=== PATIENT | female | born 1940 | race Caucasian/White ===

== ENCOUNTER 2016-11-19 02:44 | Inpatient (IN) | payer MEDICARE, OTHER ==
[2016-11-19] MEDS ORDERED: ETOMIDATE INJ/PF 20 MG/10 ML SDV IV ONE (02:50)
--- NOTE | 2016-11-19 02:52 | ER Document Report ---
ED General - General Stated Complaint: DIFFICULTY BREATHING Time Seen by Provider: 11/19/16 02:48 Notes: Patient is a 76-year-old female with a previous history of stroke. She lives at home with a purchasing agent. Paramedics were called today because patient was on well-appearing and having difficulty breathing. When paramedics arrived her oxygen saturation is 40%. Placed on CPAP which initially brought up to 83%. By the time she got here she was in the 90s. We have since switched to BiPAP and now she is 100% on the BiPAP. Patient is very weak appearing. She is able to say some words but it is difficult to understand exactly what she is saying. I asked if she has pain she says no. I asked if she knows where she is and she does say the hospital. Is unclear if she has had any recent fevers. Her temp with the paramedics was 97.3 rectal. Blood sugar was 220. Family is apparently in route from [place]. She does have a DNR form with her. Primary care physician is Dr. Darren Gomez. TRAVEL OUTSIDE OF THE [place] IN LAST 30 DAYS: No - Related Data Allergies/Adverse Reactions: No Known Allergies Allergy (Verified 05/21/14 07:10) Past Medical History - Social History Smoking Status: Unknown if Ever Smoked Frequency of alcohol use: unknown Drug Abuse: None Family History: Reviewed & Not Pertinent - Past Medical History Cardiac Medical History: Reports: Hx Hypercholesterolemia Neurological Medical History: Reports: Hx Cerebrovascular Accident GI Medical History: Reports: Hx Gastroesophageal Reflux Disease Past Surgical History: Reports: Hx Hysterectomy - Immunizations Hx Diphtheria, Pertussis, Tetanus Vaccination: Yes Review of Systems - Review of Systems -: Yes ROS unobtainable due to patient's medical condition - Patient is very weak and has difficulty communicating. Physical Exam - Vital signs Vitals: Pulse Ox 100 11/19/16 02:47 - Notes Notes: General Appearance: Very thin. Patient lying in position on the cot. She is awake and alert. Vitals: reviewed, See vital signs table. Head: no swelling or tenderness to the head Eyes: PERRL, EOMI, Conjuctiva clear Mouth: No decreasd moisture Neck: Supple, no neck tenderness, No thyromegaly Lungs: No wheezing, No rales, No rhonci, No accessory muscle use, good air exchange bilaterally. Heart: Normal rate, Regular rythm, No murmur, no rub Abdomen: Normal BS, soft, No rigidity, No abdominal tenderness, No guarding, no rebound, no abdominal masses, no organomegaly Extremities: strength 5/5 in all extremities, good pulses in all extremities, no swelling or tenderness in the extremities, no edema. Skin: warm, dry, appropriate color, no rash Neuro: speech clear, oriented x 2, patient is very weak and has difficulty responding to questions. She does move her arms spontaneously. She keeps her legs curled in the position.. Course - Re-evaluation Re-evalutation: 11/19/16 05:12 Patient's daughter did come. She is at bedside now. I asked her that if she requires a ventilator and future stay alive this is something that the patient would want. The daughter says that the patient does not want any type of artificial life support. 11/19/16 06:06 Patient's chest x-ray does show evidence of right-sided pneumonia which I suspect is probably aspiration. Urinalysis is still not been able to be obtained. I suspect this is related to dehydration. She has not made any urine despite IV fluids. Kidney function surprisingly is normal. She is a DNR. phototypesetting equipment monitor she has these what appear to be runs of tachycardia however when you auscultate her heart during these runs her heart rate on auscultation sounds to only be about 90. When obtain EKG you can see in some weights that she is actually in a sinus rhythm and that the appearance using a monitors artifact. I also reviewed previous EKGs from 2015 which had the exact same appearance. Also talked to the family who says that this is a chronic problem where she has this tremor that causes artifact look that is always concerned healthcare providers according to the family. At this time I did speak with the hospitalist who agrees to admit the patient. Patient will be admitted for treatment of aspiration pneumonia, dehydration, and to make sure that her respiratory status continues to improve. Dictation of this chart was performed using voice recognition software; therefore, there may be some unintended grammatical errors. - Vital Signs Vital signs: Temp Pulse Resp BP Pulse Ox 17 156/113 H 100 11/19/16 05:01 11/19/16 05:01 11/19/16 05:00 - Laboratory Result Diagrams: 11/19/16 02:56 11/19/16 02:56 Laboratory results interpreted by me: 11/19/16 11/19/16 11/19/16 02:56 02:56 02:56 WBC 12.4 H Hgb 10.7 L Hct 32.2 L RDW 16.9 H Seg Neutrophils % 89.6 H Lymphocytes % 7.6 L Monocytes % 2.6 L Absolute Neutrophils 11.1 H VBG pH 7.25 L VBG pCO2 67.9 H* BUN 21 H Glucose 191 H - EKG Interpretation by Me Additional EKG results interpreted by me: 11/19/16 03:20 EKG is reviewed and interpreted by me. EKG shows severe amount of artifact making it extremely difficult to interpret. The best most cleanly is her leads V4 and V5. These leads appear to be sinus rhythm with a rate around 90 bpm. The remainder of the leads are extremely difficult to interpret. Old EKG for comparison is from December 29, 2014. The old EKG also has a large amount of artifact making it not a very good comparison EKG. Discharge - Discharge Clinical Impression: Dehydration, FTT (failure to thrive) in adult Pneumonia Qualifiers: Pneumonia type: due to unspecified organism Laterality: right Lung location: unspecified part of lung Qualified Code(s): J18.9 - Pneumonia, unspecified organism Condition: Stable Disposition: ADMITTED INPATIENT Admitting Provider: Hospitalist Unit Admitted: [facility]
[2016-11-19 03:31] LABS: ABSOLUTE LYMPHOCYTES (AUTO) 0.9 10^3/uL (0.5-4.7); ABSOLUTE MONOCYTES (AUTO) 0.3 10^3/uL (0.1-1.4); ABSOLUTE NEUT (AUTO) 11.1 10^3/uL (1.7-8.2); BASOPHILS % (AUTO) 0.2 % (0-2); HEMATOCRIT 32.2 % (36.0-47.0); HEMOGLOBIN 10.7 g/dL (12.0-15.5); HGB HCT DIFFERENCE -0.1; LYMPHOCYTES % (AUTO) 7.6 % (13-45); MEAN CORPUSCULAR HEMOGLOBIN 27.6 pg (27.0-33.4); MEAN CORPUSCULAR VOLUME 83 fl (80-97); MONOCYTES % (AUTO) 2.6 % (3-13); RED BLOOD COUNT 3.86 10^6/uL (3.72-5.28); RED CELL DISTRIBUTION WIDTH 16.9 % (11.5-14.0); SEGMENTED NEUTROPHILS % (AUTO) 89.6 % (42-78); WHITE BLOOD COUNT 12.4 10^3/uL (4.0-10.5)
[2016-11-19 03:34] LABS: VENOUS BLOOD BASE EXCESS -0.1 mmol/L; VENOUS BLOOD HCO3 29.3 mmol/L (20-32); VENOUS BLOOD PH 7.25 (7.30-7.42)
[2016-11-19 03:37] LABS: VENOUS BLOOD PCO2 67.9 mmHg (35-63)
[2016-11-19 03:46] LABS: ALANINE AMINOTRANSFERASE 20 U/L (9-52); ALBUMIN 4.2 g/dL (3.5-5.0); ALKALINE PHOSPHATASE 93 U/L (38-126); ANION GAP 13 (5-19); ASPARTATE AMINO TRANSFERASE 21 U/L (14-36); BILIRUBIN,DIRECT 0.2 mg/dL (0.0-0.4); BILIRUBIN,TOTAL 0.2 mg/dL (0.2-1.3); BLOOD UREA NITROGEN 21 mg/dL (7-20); CALCIUM 9.9 mg/dL (8.4-10.2); CARBON DIOXIDE 29 mmol/L (22-30); CHLORIDE 98 mmol/L (98-107); CREATININE RESULT 0.62 mg/dL (0.52-1.25); GLUCOSE 191 mg/dL (75-110); POTASSIUM 4.9 mmol/L (3.6-5.0); SODIUM 139.5 mmol/L (137-145); TOTAL PROTEIN 7.2 g/dL (6.3-8.2)
--- NOTE | 2016-11-19 03:57 | EKG REPORT ---
SEVERITY:- ABNORMAL ECG - ATRIAL FLUTTER, A-RATE 250 VENTRICULAR PREMATURE COMPLEX RBBB AND LAFB PROBABLE LEFT VENTRICULAR HYPERTROPHY : Confirmed by: Haylee Krause MD 19-Nov-2016 03:56:41
[2016-11-19] MEDS ORDERED: NORMAL SALINE 1000 ML 1,000 ML IV ONE (04:00)
--- NOTE | 2016-11-19 04:47 | RADIOLOGY REPORT (SQ) ---
EXAM DESCRIPTION: CHEST SINGLE VIEW COMPLETED DATE/TIME: 11/19/2016 4:16 am REASON FOR STUDY: dyspnea COMPARISON: 10/09/2014. CT, 10/09/2014. EXAM PARAMETERS: NUMBER OF VIEWS: One view. TECHNIQUE: Single frontal radiographic view of the chest acquired. RADIATION DOSE: NA LIMITATIONS: None. FINDINGS: LUNGS AND PLEURA: New small nodular patchiness of the right lower lobe. MEDIASTINUM AND HILAR STRUCTURES: No masses. Contour normal. HEART AND VASCULAR STRUCTURES: Heart normal in size. Normal vasculature. BONES: Right total shoulder arthroplasty. HARDWARE: None in the chest. OTHER: No other significant finding. IMPRESSION: Small right lower lobar pneumonia. 7-12 week surveillance radiographs recommended. TECHNICAL DOCUMENTATION: JOB ID: [id number]
[2016-11-19] MEDS ORDERED: LIDOCAINE 2% URO-JET 5 ML KIT MM ONE (04:56)
[2016-11-19] MEDS ORDERED: LEVOFLOXACIN 750 MG/D5W RTU 750 MG/150 ML RTUPB IV ONE (05:16)
[2016-11-19] MEDS ORDERED: CLINDAMYCIN 300 MG/D5W RTU 300 MG/50 ML RTUPB IV ONE (05:16)
--- NOTE | 2016-11-19 05:49 | RADIOLOGY REPORT (SQ) ---
EXAM DESCRIPTION: CT HEAD WITHOUT COMPLETED DATE/TIME: 11/19/2016 5:34 am REASON FOR STUDY: altered mental status COMPARISON: 05/21/2014. TECHNIQUE: Axial images acquired through the brain without intravenous contrast. Images reviewed wi th bone, brain and subdural windows. Images stored on PACS. All CT scanners at this facility use dose modulation, iterative reconstruction, and/or weight based d osing when appropriate to reduce radiation dose to as low as reasonably achievable (ALARA). [facility]: Dose Right [facility]: CareDose [facility]: Dose Right [facility]: Teradose 4D [facility]: [employer] RADIATION DOSE: Up-to-date CT equipment and radiation dose reduction techniques were employed. CTDIv ol: 55.2 mGy. DLP: 974 mGy-cm. mGy. LIMITATIONS: None. FINDINGS: VENTRICLES: Normal size and contour. CEREBRUM: No masses. No hemorrhage. No midline shift. No evidence for acute infarction. Moderate c erebral volume loss and moderate white matter microangiopathy. CEREBELLUM: No masses. No hemorrhage. No alteration of density. No evidence for acute infarction. EXTRAAXIAL SPACES: No fluid collections. No masses. ORBITS AND GLOBE: No intra- or extraconal masses. Normal contour of globe without masses. CALVARIUM: No fracture. PARANASAL SINUSES: No fluid or mucosal thickening. SOFT TISSUES: No mass or hematoma. OTHER: No other significant finding. IMPRESSION: No acute findings. EVIDENCE OF ACUTE STROKE: NO. COMMENT: Quality ID # [id number]: Final reports with documentation of one or more dose reduction techniques (e.g., Automated exposure control, adjustment of the mA and/or kV according to patient size, use of iterative reconstruction technique) TECHNICAL DOCUMENTATION: JOB ID: [id number] [employer]- All Rights Reserved
[2016-11-19 06:03] LABS: CREATINE KINASE MB 1.4 ng/mL (<4.55)
[2016-11-19] MEDS ORDERED: ACETAMINOPHEN 325 MG TABLET PO PRN (06:08)
[2016-11-19 06:10] LABS: TROPONIN I 0.063 ng/mL
[2016-11-19] MEDS ORDERED: NORMAL SALINE 1000 ML 1,000 ML IV SCH (06:15)
--- NOTE | 2016-11-19 06:57 | PDOC H&P ---
History of Present Illness Admission Date/PCP: 11/19/16 06:08 Patient complains of: Shortness of breath and cough History of Present Illness: SALINA MAYES is a 76 year old female with a past medical history of chronic constipation, dementia, tremor, multiple strokes who is bedbound in severe flexion contraction 4. Who had been in her usual state of health until approximately 2 hours prior to presentation with cough and tachypnea EMS arrived with oxygen saturations in the 40s she was placed on CPAP with 100% FiO2 resulting in pulse oximetry of 83. In the emergency room she is placed on BiPAP satting 100%. Patient is extremely debilitated with temporal wasting and cachexia. Daughter and caregiver are at bedside to verify swallowing challenges with pocketing, coughing and refusal to cooperate with feeding intermittently but increasing frequency. Workup in the emergency room suggests aspiration pneumonia with a right lower lobe infiltrate. She started on empiric antibiotics and for the hospitalist for admission she is DNR DNI. Daughter does not wish NG tube use. Past Medical History Cardiac Medical History: Reports: Hyperlipidema Neurological Medical History: Reports: Ischemic CVA GI Medical History: Reports: Gastroesophageal Reflux Disease Past Surgical History Past Surgical History: Reports: Hysterectomy Social History Information Source: Relative Lives with: Family Smoking Status: Unknown if Ever Smoked Frequency of Alcohol Use: Heavy Hx Recreational Drug Use: No Hx Prescription Drug Abuse: No - Advance Directive Resuscitation Status: Do Not Resuscitate Family History Family History: Hypertension Parental Family History Reviewed: Yes Children Family History Reviewed: Yes Sibling(s) Family History Reviewed.: Yes Medication/Allergy Home Medications: Lansoprazole [Prevacid 30 mg Odt Tablet] 30 mg PO [id number] 05/21/14 Tolterodine Tartrate [Detrol LA] 4 mg PO DAILY 05/21/14 Zolpidem Tartrate [Ambien Cr] 12.5 mg PO QHS PRN #30 tab.mphase 05/27/14 Citalopram Hydrobromide [Celexa] 1 tab PO DAILY 10/09/14 Carbidopa/Levodopa [Sinemet 25-100 mg Tablet] 0.5 tab PO TID 12/29/14 Ciprofloxacin HCl [Cipro 500 mg Tablet] 500 mg PO BID #20 tablet 12/29/14 Hydrocodone/Acetaminophen [Wirtz 10-325 mg Tablet] 0.5 - 1 tab PO QIDP PRN 12/29 Lisinopril [Prinivil 10 mg Tablet] 10 mg PO QPM 12/29/14 Metoprolol Succinate [Toprol Xl 25 mg Tab.sr] 25 mg PO DAILY 12/29/14 Mirtazapine [Remeron 15 mg Tablet] 0.5 tab PO QHS 12/29/14 Promethazine HCl 25 mg PO TIDP PRN 12/29/14 Allergies/Adverse Reactions: No Known Allergies Allergy (Verified 05/21/14 07:10) Review of Systems ROS unobtainable: Due to mental status Physical Exam Vital Signs: Temp Pulse Resp BP Pulse Ox 17 156/113 H 100 11/19/16 05:01 11/19/16 05:01 11/19/16 05:00 General appearance: PRESENT: hard of hearing, mild distress, thin, other - Severe cachexia and temporal wasting flexion contracture 4 Head exam: PRESENT: atraumatic, normocephalic Eye exam: PRESENT: conjunctiva pink, EOMI, PERRLA. ABSENT: scleral icterus Ear exam: PRESENT: normal external ear exam Mouth exam: PRESENT: dry mucosa Neck exam: ABSENT: carotid bruit, JVD, lymphadenopathy, thyromegaly Respiratory exam: PRESENT: accessory muscle use, symmetrical, tachypnea Cardiovascular exam: PRESENT: RRR. ABSENT: diastolic murmur, rubs, systolic murmur Pulses: PRESENT: normal dorsalis pedis pul Vascular exam: PRESENT: normal capillary refill GI/Abdominal exam: PRESENT: diminished bowel sounds, firm Rectal exam: PRESENT: deferred Extremities exam: PRESENT: tenderness, other - Multiple stage II decubiti. ABSENT: calf tenderness, clubbing, full ROM, pedal edema, +1 edema Musculoskeletal exam: ABSENT: full ROM Neurological exam: PRESENT: altered Psychiatric exam: PRESENT: appropriate affect, normal mood. ABSENT: homicidal ideation, suicidal ideation Skin exam: PRESENT: dry, intact, skin tears, warm, other - Multiple stage II decubiti, sacral and lower extremity bilaterally. ABSENT: cyanosis, rash Results Impressions: Chest X-Ray 11/19/16 03:10 IMPRESSION: Small right lower lobar pneumonia. 7-12 week surveillance radiographs recommended. Head CT 11/19/16 04:21 IMPRESSION: No acute findings. EVIDENCE OF ACUTE STROKE: NO. Assessment & Plan - Diagnosis (1) Aspiration pneumonia Is this a current diagnosis for this admission?: Yes Plan: Conservative measures, no NG tube empiric antibiotics and symptomatic management consider speech therapy and swallow study (2) Dementia Is this a current diagnosis for this admission?: Yes Plan: Will undoubtedly severely limit prognosis, supportive care (3) Malnutrition Is this a current diagnosis for this admission?: Yes Plan: Limited by lack of GI access, not a TPA candidate. (4) Decubitus ulcer of left heel, stage 2 Is this a current diagnosis for this admission?: Yes Plan: Specialized mattress and repositioning as tolerated. - Time Time Spent: 50 to 70 Minutes - Inpatient Certification Medical Necessity: Need Close Monitoring Due to Risk of Patient Decompensation
[2016-11-19] MEDS ORDERED: NORMAL SALINE 1000 ML 1,000 ML IV PRN (07:42)
[2016-11-19] MEDS ORDERED: GLUCAGON,HUMAN RECOMB 1 MG INJ SUBCUT PRN (07:42)
[2016-11-19] MEDS ORDERED: DEXTROSE 40% GEL 15 GM TUBE PO PRN ×2 (07:42)
[2016-11-19] MEDS ORDERED: GUAIFENESIN SYRP 200 MG/10 ML UDC PO PRN (07:42)
[2016-11-19] MEDS ORDERED: DEXTROSE 50%-WATER 25 GM/50 ML DISP.SYRIN IV PRN ×2 (07:42)
[2016-11-19] MEDS ORDERED: IPRATROPIUM/ALBUTEROL 0.5-2.5 MG/3 ML AMPUL NEB SCH (08:00)
[2016-11-19] MEDS ORDERED: ALBUTEROL SULFATE 0.083% NEB 2.5 MG/3 ML AMPUL NEB SCH (08:00)
--- NOTE | 2016-11-19 09:51 | EKG REPORT ---
SEVERITY:- ABNORMAL ECG - PROBABLE SINUS RHYTHM REC REPEAT EKG ABERRANT COMPLEX, POSSIBLY SUPRAVENTRICULAR BORDERLINE LEFT AXIS DEVIATION PROLONGED QT INTERVAL : Confirmed by: Manohar Seals 19-Nov-2016 09:50:49
[2016-11-19] MEDS ORDERED: CARBIDOPA/LEVODOPA 25-100 MG TABLET PO SCH (10:00)
[2016-11-19] MEDS ORDERED: CEFTRIAXONE 1 GM/D5W RTU 1 GM/50 ML RTUPB IV SCH (10:00)
[2016-11-19] MEDS ORDERED: FAMOTIDINE INJ/PF 20 MG/2 ML SDV IV SCH (10:00)
[2016-11-19] MEDS ORDERED: MORPHINE SULFATE 10 MG/ML INJ IV PRN (11:14)
[2016-11-19] MEDS: LORAZEPAM INJ 2 MG/1 ML VIAL IV PRN ×2 (13:13→18:45)
[2016-11-19] MEDS ORDERED: HEPARIN SOD (PORCINE) 5,000 UNIT/ML 1 ML SYRINGE SUBCUT SCH (14:00)
--- NOTE | 2016-11-19 14:41 | PDOC PROGRESS REPORT ---
Subjective Progress Note for:: 11/19/16 Subjective:: Unable to obtain review of systems from patient secondary to dementia. Patient on BiPAP requiring 60% oxygen. Discussed patient's care with her daughter who is in agreement for comfort measures. Physical Exam Vital Signs: Temp Pulse Resp BP Pulse Ox 94 17 141/91 H 100 11/19/16 09:25 11/19/16 07:30 11/19/16 07:01 11/19/16 07:15 Intake & Output 11/18/16 11/19/16 11/20/16 06:59 06:59 06:59 Weight 37 kg Exam: General: Cachectic, acute and chronically ill-appearing, older than stated age appearing, moderate respiratory distress on BiPAP HEENT: AT/NC, PERRL, oropharynx is dry, pink, no scleral icterus, no conjunctival injection Neck: No JVD, trachea midline Chest: Bilateral rhonchi right greater than left CV: Tachycardic, regular rate and rhythm, normal S1 and S2, no rub or gallop; +2 /6sm lusb Abdomen: Scaphoid, soft, nontender to palpation, nondistended, active bowel sounds; no rebound, rigidity, or guarding Extremities: No cyanosis, clubbing or edema Neuro: minimally responsive, masklike fascies, flexion contractures of all 4 extremities Psych: unable to assess Skin: multiple stage 2 decubitii over all pressure points in various stages of healing Results Impressions: Chest X-Ray 11/19/16 03:10 IMPRESSION: Small right lower lobar pneumonia. 7-12 week surveillance radiographs recommended. Head CT 11/19/16 04:21 IMPRESSION: No acute findings. EVIDENCE OF ACUTE STROKE: NO. Assessment & Plan - Diagnosis (1) FTT (failure to thrive) in adult Is this a current diagnosis for this admission?: Yes (2) Aspiration pneumonia Qualifiers: Aspiration pneumonia type: due to vomit Laterality: right Lung location: middle lobe of lung Qualified Code(s): J69.0 - Pneumonitis due to inhalation of food and vomit Is this a current diagnosis for this admission?: Yes (3) Dehydration Is this a current diagnosis for this admission?: Yes (4) Dementia Qualifiers: Dementia type: vascular dementia Dementia behavioral disturbance: without behavioral disturbance Qualified Code(s): F01.50 - Vascular dementia without behavioral disturbance Is this a current diagnosis for this admission?: Yes (5) Malnutrition Qualifiers: Malnutrition type: protein-calorie malnutrition Protein-calorie malnutrition severity: severe Qualified Code(s): E43 - Unspecified severe protein-calorie malnutrition Is this a current diagnosis for this admission?: Yes (6) Pneumonia Qualifiers: Pneumonia type: aspiration pneumonia Laterality: right Lung location: middle lobe of lung Is this a current diagnosis for this admission?: Yes (7) Acute encephalopathy Is this a current diagnosis for this admission?: Yes (8) Decubitus ulcer of left heel, stage 2 Is this a current diagnosis for this admission?: Yes (9) SVT (supraventricular tachycardia) Is this a current diagnosis for this admission?: Yes (10) Sacral decubitus ulcer, stage II Is this a current diagnosis for this admission?: Yes (11) nonambulatory Is this a current diagnosis for this admission?: Yes - Time Time Spent with patient: 35 or more minutes Medications reviewed and adjusted accordingly: Yes Anticipated discharge: Hospice - Plan Summary Plan Summary: Upon discussion with her daughter who is present at this time, patient has not been eating or drinking well for the last several weeks, and apparently has reported to her family that she would not be here next year. She reported that she did not want to do this anymore. Patient is contracted and bedbound at baseline and dependent on others for all IADLs. She reports that her mother has lost approximately 10 pounds since March of this year. Patient was last hospitalized here in 2014 and it appears that patient is down a minimum of 4 kg at this time. At baseline, patient is oriented to self alone. In light of patient's severe sepsis, acute respiratory failure, aspiration in the setting of severe constipation, and severe protein calorie malnourishment, patient has an exceptionally poor prognosis and her daughter has elected to make her comfort measures at this time. She will discuss with her caregivers whether she will be able to perform hospice at home or go to a care center. But at this time she does wish to make her comfortable. We will place morphine, Ativan , and atropine for this purpose.
[2016-11-19] MEDS: ATROPINE SULFATE 1% OPH SOLN 5 ML BOTTLE SL SCH ×2 (15:26→22:15)
[2016-11-19] MEDS ORDERED: FENTANYL 12 MCG/HR PATCH.TD72 TD ONE (15:30)
[2016-11-20] MEDS: ATROPINE SULFATE 1% OPH SOLN 5 ML BOTTLE SL SCH ×3 (03:31→17:55)
[2016-11-20] MEDS ORDERED: MORPHINE SULFATE 10 MG/ML INJ IV ONE ×2 (08:54→09:20)
[2016-11-20] MEDS: MORPHINE SULFATE 10 MG/ML INJ IV PRN ×3 (11:41→20:17)
--- NOTE | 2016-11-20 14:10 | PDOC PROGRESS REPORT ---
Subjective Progress Note for:: 11/20/16 Subjective:: Unable to obtain review of systems from patient secondary to dementia and encephalopathy. Patient is grimacing and shallowly breathing. Discussed patient's care with her daughter who is in agreement for comfort measures. Physical Exam Vital Signs: Temp Pulse Resp BP Pulse Ox 94 15 141/91 H 100 11/19/16 09:25 11/19/16 08:50 11/19/16 07:01 11/19/16 07:15 Intake & Output 11/19/16 11/20/16 11/21/16 06:59 06:59 06:59 Intake Total 355 Output Total 0 Balance 355 Weight 37 kg Exam: General: grimacing, cachectic, acute and chronically ill-appearing, older than stated age appearing, shallow breathing HEENT: AT/NC, PERRL, oropharynx is dry, pink, no scleral icterus, no conjunctival injection Neck: No JVD, trachea midline Chest: Shallow breathing, bilateral rhonchi right greater than left CV: Tachycardic, regular rate and rhythm, normal S1 and S2, no rub or gallop; +2 /6sm lusb Abdomen: Scaphoid, soft, nontender to palpation, nondistended, active bowel sounds; no rebound, rigidity, or guarding Extremities: No cyanosis, clubbing or edema Neuro: minimally responsive, masklike fascies, flexion contractures of all 4 extremities Psych: unable to assess Skin: multiple stage 2 decubitii over all pressure points in various stages of healing Results Impressions: Chest X-Ray 11/19/16 03:10 IMPRESSION: Small right lower lobar pneumonia. 7-12 week surveillance radiographs recommended. Head CT 11/19/16 04:21 IMPRESSION: No acute findings. EVIDENCE OF ACUTE STROKE: NO. Assessment & Plan - Diagnosis (1) FTT (failure to thrive) in adult Is this a current diagnosis for this admission?: Yes (2) Aspiration pneumonia Qualifiers: Aspiration pneumonia type: due to vomit Laterality: right Lung location: middle lobe of lung Qualified Code(s): J69.0 - Pneumonitis due to inhalation of food and vomit Is this a current diagnosis for this admission?: Yes (3) Dehydration Is this a current diagnosis for this admission?: Yes (4) Dementia Qualifiers: Dementia type: vascular dementia Dementia behavioral disturbance: without behavioral disturbance Qualified Code(s): F01.50 - Vascular dementia without behavioral disturbance Is this a current diagnosis for this admission?: Yes (5) Malnutrition Qualifiers: Malnutrition type: protein-calorie malnutrition Protein-calorie malnutrition severity: severe Qualified Code(s): E43 - Unspecified severe protein-calorie malnutrition Is this a current diagnosis for this admission?: Yes (6) Pneumonia Qualifiers: Pneumonia type: aspiration pneumonia Laterality: right Lung location: middle lobe of lung Is this a current diagnosis for this admission?: Yes (7) Acute encephalopathy Is this a current diagnosis for this admission?: Yes (8) Decubitus ulcer of left heel, stage 2 Is this a current diagnosis for this admission?: Yes (9) SVT (supraventricular tachycardia) Is this a current diagnosis for this admission?: Yes (10) Sacral decubitus ulcer, stage II Is this a current diagnosis for this admission?: Yes (11) nonambulatory Is this a current diagnosis for this admission?: Yes - Plan Summary Plan Summary: Patient continues to be comfort measures and after discussing this with her daughter, she would rather her mother stay here in house as opposed to go home with hospice and complete her comfort care here. I have discussed the need to adequately manage patient's symptoms with nursing staff. Continue morphine, Ativan, atropine as needed.
[2016-11-20] MEDS: LORAZEPAM INJ 2 MG/1 ML VIAL IV PRN (16:20)
[2016-11-20] MEDS ORDERED: MORPHINE SULFATE 10 MG/ML INJ IV PRN (16:34)
[2016-11-21] MEDS: ATROPINE SULFATE 1% OPH SOLN 5 ML BOTTLE SL SCH ×5 (00:14→23:50)
[2016-11-21] MEDS: MORPHINE SULFATE 10 MG/ML INJ IV PRN ×3 (00:14→09:38)
[2016-11-21] MEDS: LORAZEPAM INJ 2 MG/1 ML VIAL IV PRN (05:56)
[2016-11-21] MEDS ORDERED: LORAZEPAM INJ 2 MG/1 ML VIAL IV PRN (07:25)
[2016-11-21] MEDS ORDERED: LEVOFLOXACIN 750 MG/D5W RTU 750 MG/150 ML RTUPB IV SCH (10:00)
[2016-11-21] MEDS ORDERED: DIAZEPAM INJ 10 MG/2 ML DISP.SYRIN IV ONE (10:05)
[2016-11-21] MEDS: HYDROMORPHONE HCL 30 MG/60 ML RTUINJ IV PRN (12:49)
[2016-11-21] MEDS: DIAZEPAM INJ 10 MG/2 ML DISP.SYRIN IV SCH ×2 (13:43→21:41)
--- NOTE | 2016-11-21 16:19 | PDOC PROGRESS REPORT ---
Subjective Progress Note for:: 11/21/16 Subjective:: Unable to obtain review of systems from patient secondary to dementia and encephalopathy. Patient is grimacing and shallowly breathing. Discussed patient's care with her daughter who is at bedside and in agreement for continued comfort measures. Physical Exam Vital Signs: Temp Pulse Resp BP Pulse Ox 94 15 141/91 H 100 11/19/16 09:25 11/19/16 08:50 11/19/16 07:01 11/19/16 07:15 Intake & Output 11/20/16 11/21/16 11/22/16 06:59 06:59 06:59 Intake Total 355 12 Output Total 0 0 Balance 355 12 Weight 37 kg Exam: General: grimacing, cachectic, acute and chronically ill-appearing, older than stated age appearing, shallow breathing HEENT: AT/NC, PERRL, oropharynx is dry, pink, no scleral icterus, no conjunctival injection Neck: No JVD, trachea midline Chest: Shallow breathing, but otherwise clear to auscultation CV: Tachycardic, regular rate and rhythm, normal S1 and S2, no rub or gallop; +2 /6sm lusb Abdomen: Scaphoid, soft, nontender to palpation, nondistended, active bowel sounds; no rebound, rigidity, or guarding Extremities: No cyanosis, clubbing or edema Neuro: minimally responsive, masklike fascies, flexion contractures of all 4 extremities Psych: unable to assess Skin: multiple stage 2 decubitii over all pressure points in various stages of healing Results Impressions: Chest X-Ray 11/19/16 03:10 IMPRESSION: Small right lower lobar pneumonia. 7-12 week surveillance radiographs recommended. Head CT 11/19/16 04:21 IMPRESSION: No acute findings. EVIDENCE OF ACUTE STROKE: NO. Assessment & Plan - Diagnosis (1) FTT (failure to thrive) in adult Is this a current diagnosis for this admission?: Yes (2) Aspiration pneumonia Qualifiers: Aspiration pneumonia type: due to vomit Laterality: right Lung location: middle lobe of lung Qualified Code(s): J69.0 - Pneumonitis due to inhalation of food and vomit Is this a current diagnosis for this admission?: Yes (3) Dehydration Is this a current diagnosis for this admission?: Yes (4) Dementia Qualifiers: Dementia type: vascular dementia Dementia behavioral disturbance: without behavioral disturbance Qualified Code(s): F01.50 - Vascular dementia without behavioral disturbance Is this a current diagnosis for this admission?: Yes (5) Malnutrition Qualifiers: Malnutrition type: protein-calorie malnutrition Protein-calorie malnutrition severity: severe Qualified Code(s): E43 - Unspecified severe protein-calorie malnutrition Is this a current diagnosis for this admission?: Yes (6) Pneumonia Qualifiers: Pneumonia type: aspiration pneumonia Laterality: right Lung location: middle lobe of lung Is this a current diagnosis for this admission?: Yes (7) Acute encephalopathy Is this a current diagnosis for this admission?: Yes (8) Decubitus ulcer of left heel, stage 2 Is this a current diagnosis for this admission?: Yes (9) SVT (supraventricular tachycardia) Is this a current diagnosis for this admission?: Yes (10) Sacral decubitus ulcer, stage II Is this a current diagnosis for this admission?: Yes (11) nonambulatory Is this a current diagnosis for this admission?: Yes - Plan Summary Plan Summary: Started patient on Dilaudid GMAT TUTOR with basal and scheduled IV Valium. Continue as needed Ativan and atropine drops for secretions. Continue comfort measures.
[2016-11-22] MEDS: HYDROMORPHONE HCL 30 MG/60 ML RTUINJ IV PRN ×2 (02:35→15:27)
[2016-11-22] MEDS: DIAZEPAM INJ 10 MG/2 ML DISP.SYRIN IV SCH ×3 (05:07→22:18)
[2016-11-22] MEDS: ATROPINE SULFATE 1% OPH SOLN 5 ML BOTTLE SL SCH ×3 (05:07→18:29)
--- NOTE | 2016-11-22 13:29 | PDOC PROGRESS REPORT ---
Subjective Progress Note for:: 11/22/16 Subjective:: Patient is on comfort measures. No reported temperature spikes or distress. Family at bedside and states she comfortable. Physical Exam Vital Signs: Temp Pulse Resp BP Pulse Ox 97.9 F 93 20 112/44 L 100 11/22/16 08:02 11/22/16 08:02 11/22/16 08:02 11/22/16 08:02 11/22/16 08:02 Intake & Output 11/21/16 11/22/16 11/23/16 06:59 06:59 06:59 Intake Total 12 28 Output Total 0 0 Balance 12 28 General appearance: PRESENT: no acute distress, thin - Cachectic, other - Unresponsive Head exam: PRESENT: normocephalic Neck exam: ABSENT: JVD Respiratory exam: PRESENT: rhonchi - Scattered bilateral, other - Nasal cannula oxygen. ABSENT: wheezes Cardiovascular exam: PRESENT: RRR. ABSENT: gallop GI/Abdominal exam: PRESENT: hypoactive bowel sounds, soft. ABSENT: distended Extremities exam: PRESENT: other - Contracted lower extremities. ABSENT: pedal edema Neurological exam: PRESENT: altered Skin exam: PRESENT: dry, warm. ABSENT: cyanosis Results Impressions: Chest X-Ray 11/19/16 03:10 IMPRESSION: Small right lower lobar pneumonia. 7-12 week surveillance radiographs recommended. Head CT 11/19/16 04:21 IMPRESSION: No acute findings. EVIDENCE OF ACUTE STROKE: NO. Assessment & Plan - Diagnosis (1) Acute encephalopathy Is this a current diagnosis for this admission?: Yes (2) Aspiration pneumonia Qualifiers: Aspiration pneumonia type: due to vomit Laterality: right Lung location: middle lobe of lung Qualified Code(s): J69.0 - Pneumonitis due to inhalation of food and vomit Is this a current diagnosis for this admission?: Yes (3) Dehydration Is this a current diagnosis for this admission?: Yes (4) Dementia Qualifiers: Dementia type: vascular dementia Dementia behavioral disturbance: without behavioral disturbance Qualified Code(s): F01.50 - Vascular dementia without behavioral disturbance Is this a current diagnosis for this admission?: Yes (5) FTT (failure to thrive) in adult Is this a current diagnosis for this admission?: Yes (6) Malnutrition Qualifiers: Malnutrition type: protein-calorie malnutrition Protein-calorie malnutrition severity: severe Qualified Code(s): E43 - Unspecified severe protein-calorie malnutrition Is this a current diagnosis for this admission?: Yes (7) Decubitus ulcer of left heel, stage 2 Is this a current diagnosis for this admission?: Yes (8) Sacral decubitus ulcer, stage II Is this a current diagnosis for this admission?: Yes (9) SVT (supraventricular tachycardia) Is this a current diagnosis for this admission?: Yes - Time Time Spent with patient: 15-24 minutes - Plan Summary Plan Summary: Continue comfort measures. demand planner for inpatient hospice.
[2016-11-23] MEDS: ATROPINE SULFATE 1% OPH SOLN 5 ML BOTTLE SL SCH ×5 (01:15→23:35)
[2016-11-23] MEDS: HYDROMORPHONE HCL 30 MG/60 ML RTUINJ IV PRN ×2 (03:40→15:39)
[2016-11-23] MEDS: DIAZEPAM INJ 10 MG/2 ML DISP.SYRIN IV SCH ×3 (05:57→21:20)
--- NOTE | 2016-11-23 11:38 | PDOC PROGRESS REPORT ---
Subjective Progress Note for:: 11/23/16 Subjective:: Patient has been comfortable, but she is on hydromorphone drip. Physical Exam Vital Signs: Temp Pulse Resp BP Pulse Ox 97.5 F 59 L 14 87/39 L 87 L 11/23/16 07:36 11/23/16 07:36 11/23/16 07:36 11/23/16 07:36 11/23/16 07:36 Intake & Output 11/22/16 11/23/16 11/24/16 06:59 06:59 06:59 Intake Total 28 53 Output Total 0 0 Balance 28 53 General appearance: PRESENT: no acute distress, thin Head exam: PRESENT: normocephalic Neck exam: ABSENT: JVD Respiratory exam: PRESENT: rhonchi - Occasional bilateral Cardiovascular exam: PRESENT: RRR. ABSENT: gallop GI/Abdominal exam: PRESENT: soft. ABSENT: distended, tenderness Extremities exam: ABSENT: pedal edema Results Impressions: Chest X-Ray 11/19/16 03:10 IMPRESSION: Small right lower lobar pneumonia. 7-12 week surveillance radiographs recommended. Head CT 11/19/16 04:21 IMPRESSION: No acute findings. EVIDENCE OF ACUTE STROKE: NO. Assessment & Plan - Diagnosis (1) Acute encephalopathy Is this a current diagnosis for this admission?: Yes (2) Aspiration pneumonia Qualifiers: Aspiration pneumonia type: due to vomit Laterality: right Lung location: middle lobe of lung Qualified Code(s): J69.0 - Pneumonitis due to inhalation of food and vomit Is this a current diagnosis for this admission?: Yes (3) Dehydration Is this a current diagnosis for this admission?: Yes (4) Dementia Qualifiers: Dementia type: vascular dementia Dementia behavioral disturbance: without behavioral disturbance Qualified Code(s): F01.50 - Vascular dementia without behavioral disturbance Is this a current diagnosis for this admission?: Yes (5) FTT (failure to thrive) in adult Is this a current diagnosis for this admission?: Yes (6) Malnutrition Qualifiers: Malnutrition type: protein-calorie malnutrition Protein-calorie malnutrition severity: severe Qualified Code(s): E43 - Unspecified severe protein-calorie malnutrition Is this a current diagnosis for this admission?: Yes (7) Decubitus ulcer of left heel, stage 2 Is this a current diagnosis for this admission?: Yes (8) Sacral decubitus ulcer, stage II Is this a current diagnosis for this admission?: Yes (9) SVT (supraventricular tachycardia) Is this a current diagnosis for this admission?: Yes - Time Time Spent with patient: Less than 15 minutes - Plan Summary Plan Summary: Continue comfort measures. Awaiting hospice evaluation.
[2016-11-23 20:31] VITALS: BP 75/40
[2016-11-24] MEDS: HYDROMORPHONE HCL 30 MG/60 ML RTUINJ IV PRN (03:37)
[2016-11-24] MEDS: ATROPINE SULFATE 1% OPH SOLN 5 ML BOTTLE SL SCH ×2 (05:10→11:27)
[2016-11-24] MEDS: DIAZEPAM INJ 10 MG/2 ML DISP.SYRIN IV SCH (05:10)
--- NOTE | 2016-11-24 09:46 | PDOC DISCHARGE SUMMARY ---
General - Admit/Disc Date/PCP Admission Date/Primary Care Provider: 11/19/16 06:08 Discharge Date: 11/24/16 - Discharge Diagnosis (1) Acute encephalopathy Is this a current diagnosis for this admission?: Yes (2) Aspiration pneumonia Is this a current diagnosis for this admission?: Yes (3) Dehydration Is this a current diagnosis for this admission?: Yes (4) Dementia Is this a current diagnosis for this admission?: Yes (5) FTT (failure to thrive) in adult Is this a current diagnosis for this admission?: Yes (6) Malnutrition Is this a current diagnosis for this admission?: Yes (7) Decubitus ulcer of left heel, stage 2 Is this a current diagnosis for this admission?: Yes (8) Sacral decubitus ulcer, stage II Is this a current diagnosis for this admission?: Yes (9) SVT (supraventricular tachycardia) Is this a current diagnosis for this admission?: Yes - Additional Information Resuscitation Status: Do Not Resuscitate Discharge Diet: As Tolerated Discharge Activity: Activity As Tolerated Home Medications: Atropine Sulfate [Atropine 1% Oph Soln 5 ml] 4 drop SL Q6 #1 bottle 11/24/16 Morphine Sulfate 20 mg RC Q4H PRN #30 supp.rect 11/24/16 History of Present Illness Patient complains of: Tachypnea History of Present Illness: SALINA MAYES is a 76 year old female with a past medical history of chronic constipation, dementia, tremor, multiple strokes who is bedbound in severe flexion contraction 4. Who had been in her usual state of health until approximately 2 hours prior to presentation with cough and tachypnea EMS arrived with oxygen saturations in the 40s she was placed on CPAP with 100% FiO2 resulting in pulse oximetry of 83. In the emergency room she is placed on BiPAP satting 100%. Patient is extremely debilitated with temporal wasting and cachexia. Daughter and caregiver are at bedside to verify swallowing challenges with pocketing, coughing and refusal to cooperate with feeding intermittently but increasing frequency. Workup in the emergency room suggests aspiration pneumonia with a right lower lobe infiltrate. She started on empiric antibiotics and for the hospitalist for admission she is DNR DNI. Daughter does not wish NG tube use. Hospital Course Hospital Course: The patient was admitted to telemetry. Patient was started on antibiotics intravenously. IV fluid was started as well. Family has refused alternate means of nutrition occluding tube feedings or permanent PEG tube placement. Due to patient's overall condition and prognosis attending physician discussed DNR and eventual comfort measures and hospice. Next of kin and decision maker for the patient is her daughter and decided make her DNR. Eventually comfort measures were instituted. Aggressive medications were discontinued. Patient was placed on supplemental oxygen and Dilaudid IV via CIRCULATING PROCESS INSPECTOR pump for comfort measures. Hospice was therefore consulted and accepted the patient at their facility. When a bed was available he was eventually transferred. Physical Exam Vital Signs: Temp Pulse Resp BP Pulse Ox 97.3 F 75 9 L 75/40 L 92 11/23/16 20:16 11/23/16 20:16 11/23/16 20:16 11/23/16 20:16 11/23/16 20:16 Intake & Output 11/23/16 11/24/16 11/25/16 06:59 06:59 06:59 Intake Total 53 153 Output Total 0 Balance 53 153 Weight 34.5 kg General appearance: PRESENT: no acute distress, other - Comfortable Head exam: PRESENT: normocephalic Mouth exam: PRESENT: dry mucosa Neck exam: ABSENT: JVD Respiratory exam: PRESENT: rhonchi - Occasional, unlabored Cardiovascular exam: PRESENT: RRR. ABSENT: gallop GI/Abdominal exam: ABSENT: distended Extremities exam: ABSENT: pedal edema Neurological exam: PRESENT: altered - Sedated and encephalopathic. Skin exam: PRESENT: dry, warm. ABSENT: cyanosis Results Impressions: Chest X-Ray 11/19/16 03:10 IMPRESSION: Small right lower lobar pneumonia. 7-12 week surveillance radiographs recommended. Head CT 11/19/16 04:21 IMPRESSION: No acute findings. EVIDENCE OF ACUTE STROKE: NO. Qualifiers PATEINT BEING DISCHARGED WITH ANY OF THE FOLLOWING DIAGNOSIS?: No Plan Discharge Plan: Transferred to inpatient hospice for end-of-life care. Time Spent: Less than 30 Minutes
== END 2016-11-24 16:40 | disposition hospice, inpatient (51) | DRG 177 ==
LOC: ER 02:44 → EH 06:08 → UNDOADMIN 06:16 → 3N 08:08
PROVIDERS: ADMIT Internal Medicine; ATTEND Internal Medicine
PROC: 5A09357 Assistance with Respiratory Ventilation, Less than 24 Consecutive Hours, Continuous Positive Airway Pressure (ICD-10-PCS; principal; 2016-11-19)
DX: J69.0 Pneumonitis due to inhalation of food and vomit (principal); G93.40 Encephalopathy, unspecified; E43 Unspecified severe protein-calorie malnutrition; R64 Cachexia; Z68.1 Body mass index [BMI] 19.9 or less, adult; I47.1 Supraventricular tachycardia; E78.00 Pure hypercholesterolemia, unspecified; K21.9 Gastro-esophageal reflux disease without esophagitis; F01.50 Vascular dementia, unspecified severity, without behavioral disturbance, psychotic disturbance, mood disturbance, and anxiety; Z51.5 Encounter for palliative care; I69.998 Other sequelae following unspecified cerebrovascular disease; M24.50 Contracture, unspecified joint; Z66 Do not resuscitate; E86.0 Dehydration; R62.7 Adult failure to thrive; L89.622 Pressure ulcer of left heel, stage 2; L89.152 Pressure ulcer of sacral region, stage 2; K59.09 Other constipation; R25.1 Tremor, unspecified; Z82.49 Family history of ischemic heart disease and other diseases of the circulatory system; Z90.710 Acquired absence of both cervix and uterus; Z74.01 Bed confinement status
CPT/HCPCS: 36415; 70450; 71010; 80053; 82550; 82553; 82803; 84484; 85025; 93005; 93010; 94640; 94660; 96365; 96367; 99285; J0696; J1170; J1956; J2060; J2270; J3360; J3490; J7030; J7620; S0028